=== PATIENT | male | born 1995 | race Two or more races ===

== ENCOUNTER 2024-07-09 13:57 | Emergency (ER) | payer SELFPAY ==
[~2024-07-09] VITALS: Ht 172.7 cm; Wt 88.6 kg
[2024-07-09 14:04] VITALS: BP 126/73; PULSE 92; RESP 18; TEMP 98.2; O2SAT 99
== END 2024-07-09 17:10 | disposition home or self-care (01) ==
LOC: EMS 13:59
DX: S63.502A Unspecified sprain of left wrist, initial encounter (principal); W19.XXXA Unspecified fall, initial encounter; Y93.89 Activity, other specified; Y92.89 Other specified places as the place of occurrence of the external cause; Y99.8 Other external cause status
CPT/HCPCS: 99283